=== PATIENT | male | born 1980 | race Caucasian/White ===

== ENCOUNTER 2018-04-08 09:33 | Inpatient (IN) | payer SELFPAY ==
[~2018-04-08] VITALS: Ht 167.6 cm; Wt 90.7 kg
[2018-04-08 10:20] LABS: BASOPHILS 0.2 % (0-2); HEMATOCRIT 50.3 % (42.0-54.0); HEMOGLOBIN 17.6 g/dL (13.5-17.5); IMMATURE GRANULOCYTES 0.7 % (0-5); LYMPHOCYTES 24.4 % (15-50); MCH 31.9 pg (26.0-34.0); MCV 91.3 fL (80.0-100.0); MEAN PLATELET VOLUME 10.9 fL (7.4-10.4); MONOCYTES 5.7 % (2-11); PLATELET COUNT 250 10x3/uL (130-400); RBC 5.51 10x6/uL (4.20-6.10); RDW 13.4 % (11.5-14.5); WBC 9.2 10x3/uL (4.8-10.8)
[2018-04-08 10:31] LABS: ALBUMIN 3.5 g/dL (3.4-5.0); ALKALINE PHOSPHATASE 71 U/L (46-116); ALT (SGPT) 29 U/L (10-68); AMYLASE - SERUM 66 U/L (25-115); BILIRUBIN - TOTAL 0.17 mg/dL (0.2-1.3); CALC OSMOLALITY 278 mosm/kg (275-300); CALCIUM 8.3 mg/dL (8.5-10.1); CARBON DIOXIDE 26.2 mmol/L (21.0-32.0); CHLORIDE - SERUM 105 mmol/L (98-107); CREATININE - SERUM 1.1 mg/dL (0.6-1.3); GLUCOSE 115 mg/dL (74-106); LIPASE 86 U/L (73-393); POTASSIUM - SERUM 4.4 mmol/L (3.5-5.1); PROTEIN - SERUM 6.9 g/dL (6.4-8.2); SODIUM 140 mmol/L (136-145); UREA NITROGEN 11 mg/dL (7-18); eGFR NON AFRICAN AMERICAN 79 mL/min (90-120)
[2018-04-08 10:33] LABS: APPEARANCE CLEAR (CLEAR); BILIRUBIN NEGATIVE (NEGATIVE); COLOR YELLOW (YELLOW); GLUCOSE NEGATIVE (NEGATIVE); KETONE NEGATIVE (NEGATIVE); NITRITE NEGATIVE (NEGATIVE); PROTEIN NEGATIVE (NEGATIVE); SPECIFIC GRAVITY 1.015 (1.005-1.020); UROBILINOGEN NORMAL (NORMAL)
[2018-04-08 18:51] VITALS: BP 142/84
--- NOTE | 2018-04-08 19:30 | NUR ---
PT RESTING IN BED. ALERT AND ORIENTED. NO SIGNS OF DISTRESS. BREATHING EVEN AND UNLABORED. PT STATES NO PROBLEMS AT THIS TIME. IV SITE LT FA DRESSING CLEAN DRY AND INTACT. NO SIGNS OF INFECTION. BOWEL SOUNDS ACTIVE. NO LOWER LEG SWELLING PRESENT. WILL CONTINUE PLAN OF CARE. CALL LIGHT IN REACH.
[2018-04-08 20:00] VITALS: BP 106/64
[2018-04-08 22:49] VITALS: BMI 32.3
[2018-04-09 04:00] VITALS: BP 107/65
[2018-04-09 05:33] LABS: BASOPHILS 0.3 % (0-2); EOSINOPHILS 3.3 % (0-7); HEMATOCRIT 47.4 % (42.0-54.0); HEMOGLOBIN 16.5 g/dL (13.5-17.5); IMMATURE GRANULOCYTES 0.3 % (0-5); MCH 31.9 pg (26.0-34.0); MCHC 34.8 g/dL (31.0-37.0); MCV 91.7 fL (80.0-100.0); MEAN PLATELET VOLUME 11.4 fL (7.4-10.4); MONOCYTES 9.1 % (2-11); PLATELET COUNT 249 10x3/uL (130-400); RBC 5.17 10x6/uL (4.20-6.10); RDW 13.7 % (11.5-14.5); WBC 9.9 10x3/uL (4.8-10.8)
[2018-04-09 05:44] LABS: CALC OSMOLALITY 280 mosm/kg (275-300); CALCIUM 7.6 mg/dL (8.5-10.1); CHLORIDE - SERUM 107 mmol/L (98-107); CREATININE - SERUM 1.1 mg/dL (0.6-1.3); GLUCOSE 89 mg/dL (74-106); MAGNESIUM - SERUM 2.1 mg/dL (1.8-2.4); PHOSPHOROUS 3.5 mg/dL (2.5-4.9); SODIUM 142 mmol/L (136-145); UREA NITROGEN 9 mg/dL (7-18); eGFR NON AFRICAN AMERICAN 79 mL/min (90-120)
--- NOTE | 2018-04-09 06:32 | NUR ---
IV SITE FOUND TO BE INFILTRATED REMOVED CATH INTACT NEW SITE WITH 20ga TO LEFT HAND X1 TRY AND FLUSHED WITH SALINE
--- NOTE | 2018-04-09 07:32 | NUR ---
AWAKE AND ALERT. ORIENTED X3. NO C/O PAIN THIS AM. UP TO SHOWER PER SELF. LUNGS ARE CLEAR BILATERALLY, NO COUGH NOTED. SKIN IS INTACT WITHOUT REDNESS. IV TO LEFT HAND IS PATENT WITHOUT REDNESS AT INSERTION SITE. DENIES NEEDS. NPO FOR SURGERY.
[2018-04-09 09:07] VITALS: BP 119/80; BP 99/64
[2018-04-09 10:30] VITALS: Ht 167.6 cm; Wt 90.7 kg
--- NOTE | 2018-04-09 10:52 | NUR ---
OFF UNIT VIA BED TO SURGERY.
[2018-04-09] MEDS ORDERED: HYDROCODON-ACE1 EAC7 PO (12:37)
[2018-04-09 13:47] VITALS: BP 142/88
--- NOTE | 2018-04-09 13:59 | NUR ---
RETURNED FROM SURGERY. A/O X3. INCISION TO UMBILICAL AREA IS OOZING SEROUS SANGUINESS DRAINAGE. WILL MONITOR. AT BEDSIDE.
[2018-04-09 14:07] VITALS: BP 135/71
[2018-04-09 15:25] VITALS: BP 130/64
--- NOTE | 2018-04-09 15:54 | NUR ---
WENT IN ROOM TO INFORM PATIENT THAT I WAS WORKING ON HIS DC HOME, PATIENT STATED THAT HE WOULDNT GO HOME THAT HIS DOGS SLEEP WITH HIM AND THAT HIS HOUSE NEEDED TO BE CLEANED, AND IF HE WENT HOME HE WANTED A SIGN STATEMENT SAYING THAT HE WOULDNT GET A INFECTION, AVERY MCKENNA APN CALLED, SHE CALLED BACK AND SAID RELEASE PT IN AM.
--- NOTE | 2018-04-09 18:00 | NUR ---
AMBULATED IN HALLWAY PER SELF. CONTINUES WITH C/O ABDOMINAL PAIN LEVEL 10. GIVEN ONE HYDROCODONE PO FOR SAME. WILL MONITOR. INSERTION SITE TO UMBILICUS AREA IS STILL OOZING SEROUS SANGUINESS FLUID. DRESSING CHANGED AGAIN. WILL MONITOR.
--- NOTE | 2018-04-09 19:00 | NUR ---
PT IN BED IN LOW FOWLERS POSITION. FAMILY MEMBER AT BEDSIDE. ALERT AND ORIENTED X4. RESPIRATIONS EVEN AND UNLABORED. VITAL SIGNS STABLE AND AFEBRILE. NO VISUAL CUES OF DISTRESS NOTED. DENIES ANY OTHER NEEDS AT THIS TIME. BED LOW. SIDE RAILS UP X2. CALL LIGHT IN REACH. WILL CONTINUE TO MONITOR.
[2018-04-09 21:20] VITALS: BP 136/96
--- NOTE | 2018-04-09 22:13 | OP ---
PATIENT NAME: ROD THOMASON MEDICAL RECORD: [id number] :80 LOCATION:[id number] ADMISSION DATE:04/08/18 SURGEON: JULIA VELA MD DATE OF OPERATION: 04/09/2018 PREOPERATIVE DIAGNOSIS: Acute cholecystitis. POSTOPERATIVE DIAGNOSIS: Acute cholecystitis with hepatomegaly. PROCEDURES: 1. Laparoscopic cholecystectomy. 2. Intraoperative cholangiography without immediate surgeon interpretation. 3. A 14-gauge core needle liver biopsies. SURGEON: Julia Vela MD CHISEL WORKER: Carey Crow APRN BLOOD LOSS: Minimal. ANESTHESIA: General. COMPLICATIONS: None. DESCRIPTION OF PROCEDURE: The patient was conveyed to the operating room electively on 04/09/2018. General anesthesia was induced by the anesthesia staff. The abdomen was sterilely prepped and draped. A small skin tiburcio was accomplished in the left upper quadrant. A Veress needle was inserted through the skin tiburcio into the peritoneal cavity. CO2 insufflation was begun. Once a sufficient pneumoperitoneum had been achieved, a 12-mm trocar was inserted through an incision at the umbilicus. Under direct internal vision utilizing a television camera, a 5-mm trocar was inserted in the left side of the abdomen, a 5-mm trocar was inserted in the epigastrium, and another 5-mm trocar was inserted far laterally in the right upper quadrant. During insertion of the Veress needle and all trocars, there appeared to have been no injury to the bowels, any intraperitoneal or retroperitoneal structures. An abdominal survey was undertaken. The gallbladder appeared mildly acutely inflamed. The liver appeared enlarged. The indication for the liver biopsy was hepatomegaly. Under laparoscopic guidance, I percutaneously accessed the right upper quadrant utilizing a 14-gauge core needle liver biopsy device. Cores were obtained over the convexity of the liver. Biopsy sites were made hemostatic with the electrocautery. I then advanced a cholangiogram trocar. I punctured the fundus of the gallbladder. I aspirated bile. I then injected dye. Real time cholangiographic images were obtained and these were sent to the radiologist for interpretation. After the cholangiogram trocar had been removed, the gallbladder was grasped and retracted cephalad. The infundibulum was grasped and retracted laterally. Blunt dissection was begun in the triangle of Calot. One cystic artery and one cystic duct were identified. These were clipped multiply and divided between clips. OPERATIVE REPORT [id number] ROD THOMASON The gallbladder was then excised from its bed in the liver. It was placed within a bag retrieval device and was withdrawn through the umbilical fascial defect. The 12-mm trocar was replaced and the abdomen was reinsufflated. I irrigated and aspirated the right upper quadrant. There was no bleeding even at low pressure of 8. The Danie-Joel suture closure device and #0 Vicryl sutures were used to close the fascia at the umbilicus. The umbilical skin was closed with interrupted 4-0 Vicryl Rapide sutures after the other trocars had been removed. The other trocar sites were closed with interrupted intracuticular 3-0 Vicryls. Benzoin and Steri-Strips were applied. The patient was then extubated and conveyed to the postanesthesia care unit, where he was in stable condition. He will be dismissed home on a narcotic analgesic. I will see him in the office in 2-3 weeks. TRANSINT:[id number] Voice Confirmation ID: [id number] DOCUMENT ID: [id number] JULIA VELA MD at 2213 CC: [id number] DICTATION DATE: 04/09/18 1410 CALCULATING MACHINE OPERATOR: 04/09/18 1751 ADM IN [place] [id number] [place] [id number]
[2018-04-10 05:45] VITALS: BP 127/80
--- NOTE | 2018-04-10 09:03 | NUR ---
PATIENT AMBULATING ABOUT FACILITY THIS MORNING. SKIN W/D TO TOUCH, COLOR PINK, RESP. REGULAR AND EVEN AT 20. AT BEDSIDE. ABDOMINAL INCISIONS INTACT X'S 4. PATIENT STATES DOESN'T UNDERSTAND BRAZILIAN. DISCHARGE PAPERS GIVEN AND PATIENT VERBALIZED UNDERSTANDING. DISCHARGED PAPERS AND BELONGINGS SENT WITH PATIENT. DISCHARGED AMBULATORY WITH VIA PRIVATE VEHICLE,
--- NOTE | 2018-04-11 08:31 | MORECARE ---
CASE MANAGEMENT DISCHARGE SUMMARY PATIENT: ROD THOMASON UNIT: [id number] ADM DATE: 04/08/18 AGE: 38 : 80 SEX: M ROOM/BED: D.2230 AUTHOR: CRAIG BARTON PHYSICIAN: REFERRING PHYSICIAN: JULIA VELA MD DATE OF SERVICE: 04/11/18 Discharge Plan Patient Name: ROD THOMASON Facility: [facility]:[place] : 1980 Planned Disposition: Anticipated Discharge Date: Discharge Date: 04/10/2018 Expected LOS: 0 Initial Reviewer: [email or web address] Initial Review Date: 04/11/2018 Generated: 04/11/18 9:31 am Patient Name: ROD THOMASON Page [id number] at 0831 All edits/amendments must be made on the electronic document DICTATION DATE: 04/11/18829 EMT I/85: MARYBETH 04/11/18829 RPT#: [id number] DC DATE:04/10/18 STATUS: DIS IN [facility] [address] [place] [address] END OF REPORT
== END 2018-04-10 09:08 | disposition home or self-care (01) | DRG 419 ==
LOC: D.ER 09:33 → D.EDHOLD 15:46 → OBSVTIME 15:47 → D.MS 16:20
PROVIDERS: Emergency Medicine; ADMIT Surgery
PROC: 0FT44ZZ Resection of Gallbladder, Percutaneous Endoscopic Approach (ICD-10-PCS; principal; 2018-04-08)
DX: K80.00 Calculus of gallbladder with acute cholecystitis without obstruction (principal)